=== PATIENT | male | born 1940 | race Caucasian/White ===

== ENCOUNTER 2018-06-29 07:46 | Day surgery (SDC) | payer MEDICARE, BC ==
[2018-06-29] MEDS ORDERED: Propofol 200 MG/20 ML SDV IV ONE (07:47)
[2018-06-29] MEDS ORDERED: Lactated Ringers 1,000 ML IV SCH (08:30)
--- NOTE | 2018-06-29 09:44 | PCM.SN ---
- Free Text/Narrative Note: pt having issues nausea and upper abd pain. will perform an egd to eval for PUD instead of screening c scope as he is worried will not be able to take prep. Risks explained to the pt. Expressed understanding and asks us to proceed.
--- NOTE | 2018-06-29 10:09 | PCM.OPNOTE ---
- General Post-Op/Procedure Note Date of Surgery/Procedure: 06/29/18 Operative Procedure(s): egd with bx Findings: gastroduodenitis Pre Op Diagnosis: epigastric abd pain Post-Op Diagnosis: gastroduodenitis Anesthesia Technique: LEEANNE Primary Surgeon: Bismark Briones Anesthesia Provider: Taj Landis Pathology: stomach and duodenum Complications: None Condition: Good Free Text/Narrative:: see dictation
[2018-06-29 11:23] VITALS: BP 121/83
--- NOTE | 2018-06-29 11:29 | OR ---
DATE OF OPERATION: 06/29/2018 SURGEON: Bismark Briones MD PROCEDURE PERFORMED: Esophagogastroduodenoscopy with cold forceps biopsy. PREOPERATIVE DIAGNOSES: Epigastric abdominal pain, nausea, and vomiting. POSTOPERATIVE DIAGNOSIS: Gastroduodenitis. INDICATIONS FOR PROCEDURE: This is a 77-year-old white male who has had some issues with abdominal pain and was offered and accepted an upper endoscopy. DESCRIPTION OF OPERATION: After an excellent IV sedation was administered, bite block was inserted. Flexible endoscope passed without difficulty down the patient's esophagus into the stomach. The stomach was insufflated. Scope was passed through the pylorus, second portion of the duodenum, and slowly withdrawn. The following findings were noted. Duodenum, in the first portion marked duodenitis. Biopsies were taken. Stomach, marked gastritis throughout the entire stomach. 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 GE junction measured at 40 cm. The esophagus was unremarkable. The patient tolerated the procedure well and was taken to recovery in good condition. Results by letter. /[id number] /MODL
--- NOTE | 2018-06-30 09:48 | PCM.SN ---
- Free Text/Narrative Note: at the time of the procedure no change to h+p
== END 2018-06-29 11:10 | disposition home or self-care (01) ==
LOC: FB.SDS 07:46
PROVIDERS: ATTEND Surgery
DX: K29.50 Unspecified chronic gastritis without bleeding (principal); K29.80 Duodenitis without bleeding; I10 Essential (primary) hypertension; E11.9 Type 2 diabetes mellitus without complications; E66.9 Obesity, unspecified; Z68.31 Body mass index [BMI] 31.0-31.9, adult; E78.5 Hyperlipidemia, unspecified; K21.9 Gastro-esophageal reflux disease without esophagitis; Z87.891 Personal history of nicotine dependence; Z79.82 Long term (current) use of aspirin; Z79.899 Other long term (current) drug therapy
CPT/HCPCS: 00731; 43239; 82962; J2704; J7120; 88305; 88342

== ENCOUNTER 2019-10-26 07:04 | Day surgery (SDC) | payer MEDICARE, BC ==
[2019-10-26] MEDS ORDERED: Propofol 200 MG/20 ML SDV IV ONE (07:05)
[2019-10-26] MEDS ORDERED: Lidocaine 1% PF 2 ML SDV INJECT ONE (07:05)
[2019-10-26] MEDS ORDERED: Sodium Chloride 0.9% 10 ML Syringe FLUSH PRN (07:15)
[2019-10-26] MEDS: Lactated Ringers 1,000 ML IV SCH (07:58)
--- NOTE | 2019-10-26 09:30 | PCM.OPNOTE ---
- General Post-Op/Procedure Note Date of Surgery/Procedure: 10/26/19 Operative Procedure(s): c scope with biopsy Findings: sigmoid and descending colon polyp sigmoid diverticulosis Pre Op Diagnosis: personal hx of colon polyp Post-Op Diagnosis: sigmoid and descending colon polyp. sigmoid diverticulosis Anesthesia Technique: MAC Primary Surgeon: Bismark Briones Anesthesia Provider: Raad Bryant Pathology: sigmoid and descending colon polyp Complications: None Condition: Good Free Text/Narrative:: see dictation
[2019-10-26 10:18] VITALS: BP 128/72; PULSE 55
--- NOTE | 2019-10-26 18:18 | OR ---
DATE OF OPERATION: 10/26/2019 SURGEON: Bismark Briones MD PROCEDURE PERFORMED: Colonoscopy with cold forceps biopsy. PREOPERATIVE DIAGNOSIS: Personal history of colon polyps. POSTOPERATIVE DIAGNOSIS: Descending colon and sigmoid colon as well as sigmoid diverticulosis. INDICATIONS FOR PROCEDURE: This is a 78-year-old white male, who presents for a followup colonoscopy. He has a personal history of colon polyps. DESCRIPTION OF OPERATION: After an excellent IV sedation was administered, digital rectal exam was performed. No marked abnormality was noted. Flexible colonoscope was inserted and advanced to the cecum. The prep was excellent. The following findings were noted: Ascending colon, unremarkable. Transverse colon, unremarkable. Descending colon, small polypoid lesion, biopsied with cold biopsy forceps and sent for permanent. Sigmoid, small polyp, biopsied with cold biopsy forceps and sent for permanent, occasional diverticula. Rectum and anus, unremarkable. The patient tolerated the procedure well, was taken to recovery room. Results will be sent by letter. /[id number] RAY/DEONTE
== END 2019-10-26 10:25 | disposition home or self-care (01) ==
LOC: FB.SDS 07:04
PROVIDERS: ATTEND Surgery
DX: Z12.11 Encounter for screening for malignant neoplasm of colon (principal); D12.5 Benign neoplasm of sigmoid colon; K57.30 Diverticulosis of large intestine without perforation or abscess without bleeding; K29.90 Gastroduodenitis, unspecified, without bleeding; I10 Essential (primary) hypertension; K21.9 Gastro-esophageal reflux disease without esophagitis; E78.2 Mixed hyperlipidemia; E11.9 Type 2 diabetes mellitus without complications; E66.9 Obesity, unspecified; Z68.30 Body mass index [BMI] 30.0-30.9, adult; Z98.890 Other specified postprocedural states; Z79.899 Other long term (current) drug therapy; Z86.010 Personal history of colon polyps; Z79.84 Long term (current) use of oral hypoglycemic drugs; Z87.891 Personal history of nicotine dependence
CPT/HCPCS: 00811-QZ; 82962; 88305; J2001; J2704; J7120

== ENCOUNTER 2022-01-03 10:37 | Emergency (ER) | payer MEDICARE, BC ==
[2022-01-03 10:58] VITALS: BP 158/76; PULSE 74
== END 2022-01-03 11:35 | disposition home or self-care (01) ==
LOC: FB.ED 10:37
DX: H81.10 Benign paroxysmal vertigo, unspecified ear (principal); H93.19 Tinnitus, unspecified ear; E78.00 Pure hypercholesterolemia, unspecified; I10 Essential (primary) hypertension; E11.9 Type 2 diabetes mellitus without complications; M10.9 Gout, unspecified; E66.9 Obesity, unspecified; Z79.899 Other long term (current) drug therapy; Z68.28 Body mass index [BMI] 28.0-28.9, adult
CPT/HCPCS: 99281; 99283